=== PATIENT | male | born 1960 | race Caucasian/White ===

== ENCOUNTER 2024-04-29 12:10 | Day surgery (SDC) | payer BC ==
[~2024-04-29 12:10] MED LIST: Dexamethasone 4 MG/ML 5 ML MDV ONE; Lidocaine 2% 5 ML SDV ONE; Midazolam 1 MG/ML 2 ML SDV ONE; Ondansetron 4 MG/2 ML SDV ONE; Propofol 200 MG/20 ML SDV ONE; Rocuronium 50 MG/5 ML Vial ONE; Sodium Chloride 0.9% 10 ML Syringe FLUSH PRN; Sodium Chloride 0.9% 10 ML Syringe FLUSH SCH; ceFAZolin 2 GM Vial ONE; dexmedeTOMIDine HCl 200 MCG/2 ML SDV ONE; fentaNYL 100 MCG/2 ML SDV ONE
[2024-04-29] MEDS: Lactated Ringers 1,000 ML IV SCH (12:20)
[2024-04-29 12:36] LABS: BASOPHILS ABSOLUTE AUTO 0.1 K/mm3 (0.0-0.2); EOSINOPHILS ABSOLUTE AUTO 0.1 K/mm3 (0.0-0.4); EOSINOPHILS PERCENT AUTO 1.2 % (0.0-6.0); HEMATOCRIT 45.9 % (42.0-52.0); HEMOGLOBIN 15.4 gm/dl (14.0-18.0); IMMATURE GRAN ABSOLUTE AUTO 0.01 K/mm3 (0.00-0.05); IMMATURE GRAN PERCENT AUTO 0.2 % (0.0-0.4); LYMPHOCYTES ABSOLUTE AUTO 1.8 K/mm3 (1.0-4.8); LYMPHOCYTES PERCENT AUTO 30.8 % (24.0-44.0); MEAN CORPUSCULAR HEMOGLOBIN 30.7 pg (28.0-32.0); MEAN CORPUSCULAR HGB CONC 33.6 g/dl (32.0-36.0); MEAN CORPUSCULAR VOLUME 91.6 fl (83.0-99.0); MEAN PLATELET VOLUME 9.5 fl (9.4-12.4); MONOCYTES ABSOLUTE AUTO 0.4 K/mm3 (0.0-0.8); MONOCYTES PERCENT AUTO 6.4 % (0.0-8.0); NEUTROPHILS ABSOLUTE AUTO 3.6 K/mm3 (1.8-7.7); NEUTROPHILS PERCENT AUTO 60.4 % (41.0-71.0); PLATELET COUNT,PLT 285 K/mm3 (150-400); RED BLOOD CELL COUNT 5.01 M/mm3 (4.52-5.90)
[2024-04-29 12:53] LABS: ANION GAP 11.6 (5-15); POTASSIUM,K 4.6 mEq/L (3.5-5.1)
[2024-04-29] MEDS: Gabapentin 300 MG Cap PO ONE (13:02)
[2024-04-29] MEDS: Acetaminophen 325 MG Tab PO ONE (13:02)
[2024-04-29] MEDS ORDERED: Lactated Ringers 1,000 ML ONE (14:14)
[2024-04-29] MEDS ORDERED: fentaNYL 100 MCG/2 ML SDV ONE ×2 (14:16→15:06)
[2024-04-29] MEDS ORDERED: Neostigmine Methylsulfate 10 MG/10 ML MDV ONE (14:42)
[2024-04-29] MEDS ORDERED: Glycopyrrolate 0.2 MG/ML 2 ML SDV ONE (14:42)
[2024-04-29] MEDS: Lidocaine 1% 10 ML MDV ONE (16:05)
[2024-04-29] MEDS: EPINEPHrine 1 MG/ML SDV ONE (16:05)
[2024-04-29] MEDS: Bupivacaine 0.5% 30 ML SDV ONE (16:05)
[2024-04-29] MEDS ORDERED: Ondansetron 4 MG/2 ML SDV IVPUSH PRN (16:27)
[2024-04-29] MEDS ORDERED: fentaNYL 100 MCG/2 ML SDV IVPUSH PRN (16:27)
[2024-04-29] MEDS ORDERED: Acetaminophen/oxyCODONE 325-5 MG Tab PO PRN (16:42)
[2024-04-29] MEDS: HYDROmorphone 0.5 MG/0.5 ML Syringe IVPUSH PRN (16:45)
[2024-04-29] MEDS: Ketorolac 30 MG/ML SDV IVPUSH PRN (17:02)
== END 2024-04-29 18:42 | disposition home or self-care (01) ==
LOC: JD.SDS 12:10
PROVIDERS: ATTEND Surgery
DX: D12.1 Benign neoplasm of appendix (principal); D12.6 Benign neoplasm of colon, unspecified
CPT/HCPCS: 36415; 44238; 44970; 80051; 85025; A9270; J0171; J0665; J0690; J1100; J1885; J2003; J2250; J2405; J2704; J2710; J3010; J3490; J7120; 00840